=== PATIENT | male | born 1940 | race Caucasian/White ===

== ENCOUNTER 2018-02-22 13:49 | Emergency (ER) | payer MEDICARE, SELFPAY ==
[2018-02-22 14:00] VITALS: BP 170/71; PULSE 72; RESP 18; TEMP 36.7; O2SAT 100
--- NOTE | 2018-02-22 14:29 | ED.ABDPAIN ---
HPI - Abdominal Pain <[facility] - Last Filed: 02/22/18 22:58> General Chief Complaint: Abdominal Pain Stated Complaint: I THINK I HAVE HERNIA Time Seen by Provider: 02/22/18 14:07 Source: patient Mode of arrival: ambulatory Limitations: no limitations History of Present Illness HPI narrative: Patient presents with chief complaint of intermittent right groin pain. He feels a burning sensation upon worse activity. He has not taken anything for the pain. He does have a history of kidney stones, but states that this does not feel like a kidney stone. He denies any dysuria, urgency, fever, nausea, vomiting, diarrhea or abdominal pain. States his pain is isolated to his right groin, worse with activity better with sitting and rest. Review of Systems <[facility] - Last Filed: 02/22/18 22:58> Review of Systems GENERAL: See HPI HEENT: Denies sinus pain, ear pain, sore throat, difficulty swallowing, dizziness. RESPIRATORY: Denies dyspnea, cough, wheezing, hemoptysis, sputum. CARDIOVASCULAR: Denies chest pain, palpitations, orthopnea, edema, GASTROINTESTINAL: Denies nausea, vomiting, abdominal pain, diarrhea, constipation, melena. : Denies dysuria, frequency, incontinence, hematuria, urinary retention. MUSCULOSKELETAL: See HPI SKIN: Denies rash, skin lesions, or other NEUROLOGIC: Denies weakness, headache, numbness, change in speech, confusion, seizures, incoordination. PSYCHIATRIC: No concerning psychosocial issues. 12 point review of systems is negative except for those stated above Exam <[facility] - Last Filed: 02/22/18 22:58> Narrative Exam Narrative: GENERAL: This is a well-nourished, well-developed patient, in no acute distress lying on stretcher. HEAD: Atraumatic. Normocephalic. No temporal or scalp tenderness. EYES: Pupils equal round and reactive. Extraocular motions intact. No scleral icterus. No injection or drainage. ENT: Nose without bleeding, purulent drainage or septal hematoma. Throat without erythema, tonsillar hypertrophy or exudate. Uvula midline. Airway patent. NECK: Trachea midline. No JVD or lymphadenopathy. Supple, nontender, no meningeal signs. CARDIOVASCULAR: Regular rate and rhythm without murmurs, gallops, or rubs. RESPIRATORY: Clear to auscultation. Breath sounds equal bilaterally. No wheezes, rales, or rhonchi. GASTROINTESTINAL: Abdomen soft, non-tender, nondistended. No hepato-splenomegaly, or palpable masses. No guarding. Active bowel sounds all 4 quadrants. exam performed with Orin FARIA as veterinary technology instructor. No palpable hernia bilaterally. Testicles nontender to palpation no palpable masses. EXTREMITIES: No clubbing, cyanosis, or edema. No joint tenderness, effusion, or edema noted. BACK: Nontender without deformity or crepitance. No flank tenderness. NEURO: AOx3. SKIN: No rash or erythema. Initial Vital Signs Initial Vital Signs: Vital Signs Temperature 98.1 F 02/22/18 14:00 Pulse Rate 72 02/22/18 14:00 Respiratory Rate 18 02/22/18 14:00 Blood Pressure 170/71 H 02/22/18 14:00 Pulse Oximetry 100 02/22/18 14:00 <Kailyn Emanuel DO - Last Filed: 02/23/18 10:35> Initial Vital Signs Initial Vital Signs: Vital Signs Temperature 98.1 F 02/22/18 14:00 Pulse Rate 72 02/22/18 14:00 Respiratory Rate 18 02/22/18 14:00 Blood Pressure 170/71 H 02/22/18 14:00 Pulse Oximetry 100 02/22/18 14:00 Course <LINA Sandoval - Last Filed: 02/22/18 22:58> Orders Ordered: ED Orders 02/22/18 14:46 Urinalysis and Microscopic Stat 02/22/18 15:10 Complete Blood Count AUTO DIFF Stat Comprehensive Metabolic Panel Stat 02/22/18 15:31 US abdomen limited Stat Vital Signs - 8 hr 02/22/18 16:59 Pulse Rate 54 L Respiratory Rate 16 Blood Pressure [Right Arm] 133/66 Pulse Oximetry 99 <DO Anayeli Morales Last Filed: 02/23/18 10:35> Orders Ordered: ED Orders 02/22/18 14:46 Urinalysis and Microscopic Stat 02/22/18 15:10 Complete Blood Count AUTO DIFF Stat Comprehensive Metabolic Panel Stat 02/22/18 15:31 US abdomen limited Stat Vital Signs - 8 hr 02/22/18 16:59 Pulse Rate 54 L Respiratory Rate 16 Blood Pressure [Right Arm] 133/66 Pulse Oximetry 99 MDM - Abdominal Pain <Celsa Chadwick, INTERLINE CLERK-BC - Last Filed: 02/22/18 22:58> Lab Data Attestation: I reviewed the patient's lab results. Result diagrams: 02/22/18 15:10 02/22/18 15:10 Lab Results 02/22/18 02/22/18 02/22/18 Range/Units 14:46 15:10 15:10 WBC 7.6 (4.5-11.0) X10^3/uL RBC 4.43 L (4.5-5.9) X10^6/uL Hgb 14.4 (13.5-17.5) g/dL Hct 42.8 (41-53) % MCV 96.8 (80-100) fL MCH 32.5 (26-34) PG MCHC 33.6 (30-36) % RDW 13.6 (11.6-14.8) % Plt Count 190 (150-400) X10^3/uL Neut % (Auto) 72.0 (50-75) % Lymph % (Auto) 21.0 L (25-40) % [place] % (Auto) 5.2 (3-14) % Eos % (Auto) 1.4 L (2-4) % Baso % (Auto) 0.4 (0-2) % Neut # (Auto) 5400 (1003-3337) /uL Sodium 144 (137-145) mmol/L Potassium 4.0 (3.4-5.1) mmol/L Chloride 107 (98-107) mmol/L Carbon Dioxide 28 (22-32) mmol/L BUN 18 (9-20) mg/dL Creatinine 0.80 (0.66-1.25) mg/dL Estimated GFR > 60.0 (>60) mL/min BUN/Creatinine Ratio 22.5 H (6-22) Glucose 96 (80-110) mg/dL Calcium 9.4 (8.4-10.2) mg/dL Total Bilirubin 0.6 (0.2-1.3) mg/dL AST 25 (17-59) IU/L ALT 20 L (21-72) IU/L Alkaline Phosphatase 98 (38-126) U/L Total Protein 6.8 (6.3-8.2) g/dL Albumin 4.3 (3.5-5.0) g/dL Globulin 2.5 (1.7-4.1) g/dL Albumin/Globulin Ratio 1.7 (1.0-2.8) Urine Color Yellow Urine Appearance Clear Urine pH 6.5 (4.5-8.0) Ur Specific [place] 1.020 (1.000-1.035) Urine Protein Negative (Negative) Urine Glucose (UA) Negative (Normal) g/dL Urine Ketones Negative (NEGATIVE) Urine Occult Blood Negative (Negative) Urine Nitrate Negative (Negative) Urine Bilirubin Negative (NEGATIVE) Urine Urobilinogen 0.2 (0.2) E.U./dL Ur Leukocyte Esterase Negative (NEGATIVE) Urine RBC None seen (0-5/HPF) Urine WBC 0-1/hpf (0-5/HPF) Ur Squamous Epith Cells 0-1 /hpf Urine Bacteria None seen (None) Ur Culture Indicated? Cult not indicated Micro UA Comment Not Reportable Imaging Data US - abdomen: Radiologist's impression: [place] [address] Ultrasound Report Signed Patient: EVETTE FERMIN JR MR#: [id number] : 1940 Acct:[id number] Age/Sex: 78 / M Date of Service: 02/22/18 Loc: ED Accession Number: [id number] Procedure: US abdomen limited Ordering Provider: Celsa ChadwickBC PROCEDURE: US ABDOMEN LIMITED INDICATIONS: right groin pain.. ? hernia TECHNIQUE: Real-time focused scanning was performed of the inguinal region, with image documentation. COMPARISON: None. FINDINGS: Targeted sonographic imaging of the right inguinal region was performed. There is no cystic or solid mass. No lymphadenopathy is evident. No inguinal hernia is appreciated. IMPRESSION: No evidence of a right inguinal hernia. Dictated by: Waqar Cronin M.D. on 02/22/2018 at 15:45 Approved by: Waqar Cronin M.D. on 02/22/2018 at 15:45 [facility] Narrative Medical decision making narrative: Patient presented with chief complaint of right groin pain worse with activity. He states it felt burning and only happened with some activity. He denies any pain in the emergency department. I did not find or appreciate a hernia on exam. I did order an ultrasound to evaluate for hernia I cannot palpate. This came back negative. He had a normal CBC and CMP as well as a normal urinalysis. I discussed conservative measures for the time being including over the calf or ibuprofen rest and ice. Discussed follow-up primary care provider worsening or no improvement. Patient had no questions or concerns upon discharge. <Kailyn Emanuel, DO - Last Filed: 02/23/18 10:35> Lab Data Lab Results 02/22/18 02/22/18 02/22/18 Range/Units 14:46 15:10 15:10 WBC 7.6 (4.5-11.0) X10^3/uL RBC 4.43 L (4.5-5.9) X10^6/uL Hgb 14.4 (13.5-17.5) g/dL Hct 42.8 (41-53) % MCV 96.8 (80-100) fL MCH 32.5 (26-34) PG MCHC 33.6 (30-36) % RDW 13.6 (11.6-14.8) % Plt Count 190 (150-400) X10^3/uL Neut % (Auto) 72.0 (50-75) % Lymph % (Auto) 21.0 L (25-40) % [place] % (Auto) 5.2 (3-14) % Eos % (Auto) 1.4 L (2-4) % Baso % (Auto) 0.4 (0-2) % Neut # (Auto) 5400 (3456-5834) /uL Sodium 144 (137-145) mmol/L Potassium 4.0 (3.4-5.1) mmol/L Chloride 107 (98-107) mmol/L Carbon Dioxide 28 (22-32) mmol/L BUN 18 (9-20) mg/dL Creatinine 0.80 (0.66-1.25) mg/dL Estimated GFR > 60.0 (>60) mL/min BUN/Creatinine Ratio 22.5 H (6-22) Glucose 96 (80-110) mg/dL Calcium 9.4 (8.4-10.2) mg/dL Total Bilirubin 0.6 (0.2-1.3) mg/dL AST 25 (17-59) IU/L ALT 20 L (21-72) IU/L Alkaline Phosphatase 98 (38-126) U/L Total Protein 6.8 (6.3-8.2) g/dL Albumin 4.3 (3.5-5.0) g/dL Globulin 2.5 (1.7-4.1) g/dL Albumin/Globulin Ratio 1.7 (1.0-2.8) Urine Color Yellow Urine Appearance Clear Urine pH 6.5 (4.5-8.0) Ur Specific [place] 1.020 (1.000-1.035) Urine Protein Negative (Negative) Urine Glucose (UA) Negative (Normal) g/dL Urine Ketones Negative (NEGATIVE) Urine Occult Blood Negative (Negative) Urine Nitrate Negative (Negative) Urine Bilirubin Negative (NEGATIVE) Urine Urobilinogen 0.2 (0.2) E.U./dL Ur Leukocyte Esterase Negative (NEGATIVE) Urine RBC None seen (0-5/HPF) Urine WBC 0-1/hpf (0-5/HPF) Ur Squamous Epith Cells 0-1 /hpf Urine Bacteria None seen (None) Ur Culture Indicated? Cult not indicated Micro UA Comment Not Reportable Discharge Plan Departure Patient Disposition: Home Clinical Impression: Inguinal pain Discharge Date/Time: 02/22/18 17:35 Interventions: ED Discharge Assessment Last Done: 02/22/18 17:34 Instructions: DI for Groin Strain, How To Perform RICE (Rest, Ice, Compress, Elevate), Ibuprofen Activity Restrictions/Additional Instructions: You came to the emergency department today concerned you might have a hernia. I cannot find any evidence of a hernia on exam and there was nothing visible on ultrasound. I would like you to rest in case you have strained a muscle or iliofemoral ligament. I would like you to rest, use ice, take ibuprofen 3 times a day for inflammation. Please follow-up if worsening or no improvement. Referrals: [facility] [Provider Group] <Kailyn Emanuel DO - Last Filed: 02/23/18 10:35> Cosign ED Attending Ofelia Attestation: I was immediately available in the department for consultation. Documentation has been reviewed. I agree with assessment and plan.
--- NOTE | 2018-02-22 15:25 | ED_ITS ---
HPI - Abdominal Pain [facility] - Last Filed: 02/22/18 22:58> General Chief Complaint: Abdominal Pain Stated Complaint: I THINK I HAVE HERNIA Time Seen by Provider: 02/22/18 14:07 Source: patient Mode of arrival: ambulatory Limitations: no limitations History of Present Illness HPI narrative: Patient presents with chief complaint of intermittent right groin pain. He feels a burning sensation upon worse activity. He has not taken anything for the pain. He does have a history of kidney stones, but states that this does not feel like a kidney stone. He denies any dysuria, urgency, fever, nausea, vomiting, diarrhea or abdominal pain. States his pain is isolated to his right groin, worse with activity better with sitting and rest. Review of Systems <[facility] - Last Filed: 02/22/18 22:58> Review of Systems GENERAL: See HPI HEENT: Denies sinus pain, ear pain, sore throat, difficulty swallowing, dizziness. RESPIRATORY: Denies dyspnea, cough, wheezing, hemoptysis, sputum. CARDIOVASCULAR: Denies chest pain, palpitations, orthopnea, edema, GASTROINTESTINAL: Denies nausea, vomiting, abdominal pain, diarrhea, constipation, melena. : Denies dysuria, frequency, incontinence, hematuria, urinary retention. MUSCULOSKELETAL: See HPI SKIN: Denies rash, skin lesions, or other NEUROLOGIC: Denies weakness, headache, numbness, change in speech, confusion, seizures, incoordination. PSYCHIATRIC: No concerning psychosocial issues. 12 point review of systems is negative except for those stated above Exam <[facility] - Last Filed: 02/22/18 22:58> Narrative Exam Narrative: GENERAL: This is a well-nourished, well-developed patient, in no acute distress lying on stretcher. HEAD: Atraumatic. Normocephalic. No temporal or scalp tenderness. EYES: Pupils equal round and reactive. Extraocular motions intact. No scleral icterus. No injection or drainage. ENT: Nose without bleeding, purulent drainage or septal hematoma. Throat without erythema, tonsillar hypertrophy or exudate. Uvula midline. Airway patent. NECK: Trachea midline. No JVD or lymphadenopathy. Supple, nontender, no meningeal signs. CARDIOVASCULAR: Regular rate and rhythm without murmurs, gallops, or rubs. RESPIRATORY: Clear to auscultation. Breath sounds equal bilaterally. No wheezes , rales, or rhonchi. GASTROINTESTINAL: Abdomen soft, non-tender, nondistended. No hepato-splenomegaly , or palpable masses. No guarding. Active bowel sounds all 4 quadrants. exam performed with Orin FARIA as manager asset management. No palpable hernia bilaterally. Testicles nontender to palpation no palpable masses. EXTREMITIES: No clubbing, cyanosis, or edema. No joint tenderness, effusion, or edema noted. BACK: Nontender without deformity or crepitance. No flank tenderness. NEURO: AOx3. SKIN: No rash or erythema. Initial Vital Signs Initial Vital Signs: Vital Signs Temperature 98.1 F 02/22/18 14:00 Pulse Rate 72 02/22/18 14:00 Respiratory Rate 18 02/22/18 14:00 Blood Pressure 170/71 H 02/22/18 14:00 Pulse Oximetry 100 02/22/18 14:00 <Kailyn Emanuel DO - Last Filed: 02/23/18 10:35> Initial Vital Signs Initial Vital Signs: Vital Signs Temperature 98.1 F 02/22/18 14:00 Pulse Rate 72 02/22/18 14:00 Respiratory Rate 18 02/22/18 14:00 Blood Pressure 170/71 H 02/22/18 14:00 Pulse Oximetry 100 02/22/18 14:00 Course <LINA Sandoval - Last Filed: 02/22/18 22:58> Orders Ordered: ED Orders 02/22/18 14:46 Urinalysis and Microscopic Stat 02/22/18 15:10 Complete Blood Count AUTO DIFF Stat Comprehensive Metabolic Panel Stat 02/22/18 15:31 US abdomen limited Stat Vital Signs - 8 hr 02/22/18 16:59 Pulse Rate 54 L Respiratory Rate 16 Blood Pressure [Right Arm] 133/66 Pulse Oximetry 99 <DO Anayeli Morales Last Filed: 02/23/18 10:35> Orders Ordered: ED Orders 02/22/18 14:46 Urinalysis and Microscopic Stat 02/22/18 15:10 Complete Blood Count AUTO DIFF Stat Comprehensive Metabolic Panel Stat 02/22/18 15:31 US abdomen limited Stat Vital Signs - 8 hr 02/22/18 16:59 Pulse Rate 54 L Respiratory Rate 16 Blood Pressure [Right Arm] 133/66 Pulse Oximetry 99 MDM - Abdominal Pain <Celsa Chadwick, SYNOPTIC METEOROLOGIST-BC - Last Filed: 02/22/18 22:58> Lab Data Attestation: I reviewed the patient's lab results. Result diagrams: 02/22/18 15:10 02/22/18 15:10 Lab Results 02/22/18 02/22/18 02/22/18 Range/Units 14:46 15:10 15:10 WBC 7.6 (4.5-11.0) X10^3/uL RBC 4.43 L (4.5-5.9) X10^6/uL Hgb 14.4 (13.5-17.5) g/dL Hct 42.8 (41-53) % MCV 96.8 (80-100) fL MCH 32.5 (26-34) PG MCHC 33.6 (30-36) % RDW 13.6 (11.6-14.8) % Plt Count 190 (150-400) X10^3/uL Neut % (Auto) 72.0 (50-75) % Lymph % (Auto) 21.0 L (25-40) % [place] % (Auto) 5.2 (3-14) % Eos % (Auto) 1.4 L (2-4) % Baso % (Auto) 0.4 (0-2) % Neut # (Auto) 5400 (1184-1070) /uL Sodium 144 (137-145) mmol/L Potassium 4.0 (3.4-5.1) mmol/L Chloride 107 (98-107) mmol/L Carbon Dioxide 28 (22-32) mmol/L BUN 18 (9-20) mg/dL Creatinine 0.80 (0.66-1.25) mg/dL Estimated GFR > 60.0 (>60) mL/min BUN/Creatinine Ratio 22.5 H (6-22) Glucose 96 (80-110) mg/dL Calcium 9.4 (8.4-10.2) mg/dL Total Bilirubin 0.6 (0.2-1.3) mg/dL AST 25 (17-59) IU/L ALT 20 L (21-72) IU/L Alkaline Phosphatase 98 (38-126) U/L Total Protein 6.8 (6.3-8.2) g/dL Albumin 4.3 (3.5-5.0) g/dL Globulin 2.5 (1.7-4.1) g/dL Albumin/Globulin Ratio 1.7 (1.0-2.8) Urine Color Yellow Urine Appearance Clear Urine pH 6.5 (4.5-8.0) Ur Specific [place] 1.020 (1.000-1.035) Urine Protein Negative (Negative) Urine Glucose (UA) Negative (Normal) g/dL Urine Ketones Negative (NEGATIVE) Urine Occult Blood Negative (Negative) Urine Nitrate Negative (Negative) Urine Bilirubin Negative (NEGATIVE) Urine Urobilinogen 0.2 (0.2) E.U./dL Ur Leukocyte Esterase Negative (NEGATIVE) Urine RBC None seen (0-5/HPF) Urine WBC 0-1/hpf (0-5/HPF) Ur Squamous Epith Cells 0-1 /hpf Urine Bacteria None seen (None) Ur Culture Indicated? Cult not indicated Micro UA Comment Not Reportable Imaging Data US - abdomen: Radiologist's impression: [place] [address] Ultrasound Report Signed Patient: EVETTE FERMIN JR MR#: [id number] : 1940 Acct:[id number] Age/Sex: 78 / M Date of Service: 02/22/18 Loc: ED Accession Number: [id number] Procedure: US abdomen limited Ordering Provider: Celsa ChadwickBC PROCEDURE: US ABDOMEN LIMITED INDICATIONS: right groin pain.. ? hernia TECHNIQUE: Real-time focused scanning was performed of the inguinal region, with image documentation. COMPARISON: None. FINDINGS: Targeted sonographic imaging of the right inguinal region was performed. There is no cystic or solid mass. No lymphadenopathy is evident. No inguinal hernia is appreciated. IMPRESSION: No evidence of a right inguinal hernia. Dictated by: Waqar Cronin M.D. on 02/22/2018 at 15:45 Approved by: Waqar Cronin M.D. on 02/22/2018 at 15:45 [facility] Narrative Medical decision making narrative: Patient presented with chief complaint of right groin pain worse with activity. He states it felt burning and only happened with some activity. He denies any pain in the emergency department. I did not find or appreciate a hernia on exam. I did order an ultrasound to evaluate for hernia I cannot palpate. This came back negative. He had a normal CBC and CMP as well as a normal urinalysis. I discussed conservative measures for the time being including over the calf or ibuprofen rest and ice. Discussed follow-up primary care provider worsening or no improvement. Patient had no questions or concerns upon discharge. <Kailyn Emanuel, DO - Last Filed: 02/23/18 10:35> Lab Data Lab Results 02/22/18 02/22/18 02/22/18 Range/Units 14:46 15:10 15:10 WBC 7.6 (4.5-11.0) X10^3/uL RBC 4.43 L (4.5-5.9) X10^6/uL Hgb 14.4 (13.5-17.5) g/dL Hct 42.8 (41-53) % MCV 96.8 (80-100) fL MCH 32.5 (26-34) PG MCHC 33.6 (30-36) % RDW 13.6 (11.6-14.8) % Plt Count 190 (150-400) X10^3/uL Neut % (Auto) 72.0 (50-75) % Lymph % (Auto) 21.0 L (25-40) % [place] % (Auto) 5.2 (3-14) % Eos % (Auto) 1.4 L (2-4) % Baso % (Auto) 0.4 (0-2) % Neut # (Auto) 5400 (0780-6466) /uL Sodium 144 (137-145) mmol/L Potassium 4.0 (3.4-5.1) mmol/L Chloride 107 (98-107) mmol/L Carbon Dioxide 28 (22-32) mmol/L BUN 18 (9-20) mg/dL Creatinine 0.80 (0.66-1.25) mg/dL Estimated GFR > 60.0 (>60) mL/min BUN/Creatinine Ratio 22.5 H (6-22) Glucose 96 (80-110) mg/dL Calcium 9.4 (8.4-10.2) mg/dL Total Bilirubin 0.6 (0.2-1.3) mg/dL AST 25 (17-59) IU/L ALT 20 L (21-72) IU/L Alkaline Phosphatase 98 (38-126) U/L Total Protein 6.8 (6.3-8.2) g/dL Albumin 4.3 (3.5-5.0) g/dL Globulin 2.5 (1.7-4.1) g/dL Albumin/Globulin Ratio 1.7 (1.0-2.8) Urine Color Yellow Urine Appearance Clear Urine pH 6.5 (4.5-8.0) Ur Specific [place] 1.020 (1.000-1.035) Urine Protein Negative (Negative) Urine Glucose (UA) Negative (Normal) g/dL Urine Ketones Negative (NEGATIVE) Urine Occult Blood Negative (Negative) Urine Nitrate Negative (Negative) Urine Bilirubin Negative (NEGATIVE) Urine Urobilinogen 0.2 (0.2) E.U./dL Ur Leukocyte Esterase Negative (NEGATIVE) Urine RBC None seen (0-5/HPF) Urine WBC 0-1/hpf (0-5/HPF) Ur Squamous Epith Cells 0-1 /hpf Urine Bacteria None seen (None) Ur Culture Indicated? Cult not indicated Micro UA Comment Not Reportable Discharge Plan Departure Patient Disposition: Home Clinical Impression: Inguinal pain Discharge Date/Time: 02/22/18 17:35 Interventions: ED Discharge Assessment Last Done: 02/22/18 17:34 Instructions: DI for Groin Strain, How To Perform RICE (Rest, Ice, Compress, Elevate), Ibuprofen Activity Restrictions/Additional Instructions: You came to the emergency department today concerned you might have a hernia. I cannot find any evidence of a hernia on exam and there was nothing visible on ultrasound. I would like you to rest in case you have strained a muscle or iliofemoral ligament. I would like you to rest, use ice, take ibuprofen 3 times a day for inflammation. Please follow-up if worsening or no improvement. Referrals: [facility] [Provider Group] <Kailyn Emanuel DO - Last Filed: 02/23/18 10:35> Cosign ED Attending Ofelia Attestation: I was immediately available in the department for consultation. Documentation has been reviewed. I agree with assessment and plan.
--- NOTE | 2018-02-22 15:31 | DI.US.S_ITS ---
PROCEDURE: US ABDOMEN LIMITED INDICATIONS: right groin pain.. ? hernia TECHNIQUE: Real-time focused scanning was performed of the inguinal region, with image documentation. COMPARISON: None. FINDINGS: Targeted sonographic imaging of the right inguinal region was performed. There is no cystic or solid mass. No lymphadenopathy is evident. No inguinal hernia is appreciated. IMPRESSION: No evidence of a right inguinal hernia. Dictated by: Waqar Cronin M.D. on 02/22/2018 at 15:45 Approved by: Waqar Cronin M.D. on 02/22/2018 at 15:45
[2018-02-22 15:33] LABS: Add Manual Diff / Slide Review NO; Basophils Percent Auto 0.4 % (0-2); Eosinophils Percent Auto 1.4 % (2-4); Hematocrit 42.8 % (41-53); Hemoglobin 14.4 g/dL (13.5-17.5); Mean Corpuscular HGB Conc 33.6 % (30-36); Mean Corpuscular Hemoglobin 32.5 PG (26-34); Mean Corpuscular Volume 96.8 fL (80-100); Monocytes Percent Auto 5.2 % (3-14); Neutrophils Absolute Auto 5400 /uL (3000-5900); Platelet Count 190 X10^3/uL (150-400); Red Blood Cell Count 4.43 X10^6/uL (4.5-5.9); Red Cell Distribution Width 13.6 % (11.6-14.8); White Blood Cell Count 7.6 X10^3/uL (4.5-11.0)
[2018-02-22 15:36] LABS: Alanine Aminotransferase 20 IU/L (21-72); Albumin 4.3 g/dL (3.5-5.0); Albumin Globulin Ratio 1.7 (1.0-2.8); Alkaline Phosphatase 98 U/L (38-126); Aspartate Aminotransferase 25 IU/L (17-59); BUN Creatinine Ratio 22.5 (6-22); Bilirubin Total 0.6 mg/dL (0.2-1.3); Blood Urea Nitrogen 18 mg/dL (9-20); Calcium 9.4 mg/dL (8.4-10.2); Carbon Dioxide 28 mmol/L (22-32); Chloride 107 mmol/L (98-107); Estimated Glomerular Filt Rate > 60.0 mL/min (>60); Globulin 2.5 g/dL (1.7-4.1); Glucose 96 mg/dL (80-110); HEMOLYSIS 20 (0-50); Sodium 144 mmol/L (137-145); Total Protein 6.8 g/dL (6.3-8.2)
[2018-02-22 15:42] LABS: Bacteria Urine None Seen; RBC Urine None Seen (0-5/HPF)
[2018-02-22 15:45] LABS: Appearance Urine UA CLEAR; Bilirubin Urine UA NEGATIVE (NEGATIVE); Color Urine UA YELLOW; Glucose Urine UA NEGATIVE (Normal); Ketones Urine UA NEGATIVE (NEGATIVE); Leukocyte Esterase Urine UA NEGATIVE (NEGATIVE); Nitrite Urine UA Negative (Negative); Occult Blood Urine UA NEGATIVE (Negative); Protein Urine UA NEGATIVE (Negative); Urobilinogen Urine UA 0.2 E.U./dL (0.2); pH Urine UA 6.5 (4.5-8.0)
[2018-02-22 16:02] LABS: Squamous Epithelial Cell Urine 0-1 /HPF; WBC Urine 0-1/HPF (0-5/HPF)
[2018-02-22 16:03] LABS: Culture Indicated Urine Cult Not Indicated
[2018-02-22 16:59] VITALS: BP 133/66; PULSE 54; RESP 16; O2SAT 99
== END 2018-02-22 17:35 | disposition home or self-care (01) ==
PROVIDERS: Emergency Provider Nurse Practitioner Family
DX: R10.30 Lower abdominal pain, unspecified (principal)
CPT/HCPCS: 36591; 76705; 80053; 81001; 85025; 99282; 99284

== ENCOUNTER 2018-10-06 11:26 | Emergency (ER) | payer MEDICARE, SELFPAY ==
--- NOTE | 2018-10-06 11:29 | ED.FALL ---
HPI - Fall General Chief Complaint: Fall Stated Complaint: Fell 5days ago; states rt hip swelling and pain Time Seen by Provider: 10/06/18 11:27 Source: patient and family Mode of arrival: wheelchair Limitations: no limitations History of Present Illness HPI Narrative: 78-year-old male nonsmoker with history of hypertension and hyperlipidemia presents with his for evaluation of right hip pain. Five days ago the patient was in a bath tub and slipped, landing on his right hip. He denies any other injury. His pain is worse with motion and improves with rest. He denies numbness, tingling or weakness. His injury was suffered in [place] and he and drove across country and presents today because his pain is still present. He is unable to ambulate without difficulty. He denies numbness, tingling or weakness. He denies any difficulty starting a urine stream, controlling her bowel or footdrop. MD complaint: fall Onset (ago): day(s) Fall from: standing Fall witnessed: no Place fall occurred: home Loss of consciousness: none Prolonged down time: no Symptoms prior to fall: none Context: tripped/slipped Severity: moderate Quality: burning, sharp and dull Associated symptoms (after fall): denies Related Data Home Medications Medication Instructions Recorded Confirmed allopurinol 300 mg PO DAILY 10/06/18 10/06/18 aspirin 81 mg PO DAILY 10/06/18 10/06/18 losartan 100 mg PO DAILY 10/06/18 10/06/18 pravastatin 40 mg PO DAILY 10/06/18 10/06/18 tamsulosin 0.4 mg PO DAILY 10/06/18 10/06/18 Previous Rx's Medication Instructions Recorded ketorolac 10 mg PO Q6H PRN #14 tab 10/06/18 tramadol [Ultram] 50 mg PO TID PRN #10 tab 10/06/18 Allergies Allergy/AdvReac Type Severity Reaction Status Date / Time No Known Drug Allergies Allergy Verified 10/06/18 11:34 Review of Systems Constitutional Denies chills, Denies fever(s), Denies lethargy and Denies weakness Eyes Denies change in vision, Denies eye discharge, Denies irritation and Denies loss of vision ENT Ears, Nose, Mouth, and Throat: Denies change in voice, Denies neck pain and Denies sore throat Cardiovascular Denies chest pain, Denies irregular heart rhythm, Denies lightheadedness, Denies palpitations, Denies dyspnea, Denies dyspnea on exertion and Denies orthopnea Respiratory Denies cough, Denies dyspnea, Denies dyspnea on exertion and Denies wheezing Gastrointestinal Gastrointestinal: Denies abdominal pain, Denies change in bowel habits, Denies diarrhea, Denies nausea and Denies vomiting Genitourinary Denies hematuria, Denies flank pain, Denies urinary incontinence and Denies urinary urgency Musculoskeletal Reports joint swelling, Reports limited range of motion and Denies neck pain Integumentary/Breasts Denies pruritus, Denies erythema, Denies rash and Denies wounds Neurologic Denies confusion, Denies loss of vision and Denies weakness Psychiatric Denies anxiety, Denies confusion, Denies depression, Denies homicidal ideation and Denies suicidal ideation Endocrine Denies palpitations Hematologic/Lymphatic Denies easy bruising Allergic/Immunologic Denies wheezing Exam Narrative Exam Narrative: GEN: AOx3 and in mild distress, GCS 15 EYES: Pupils are equal, round, and reactive to light and accommodation. Extraoccular muscles are intact bilaterally. There is no subconjunctival hemorrhage or exudate. CHEST: Lungs are clear to auscultation bilaterally and free of wheezes, rales, or rhonchi. Heart rate is regular rhythm, there are no murmurs, clicks, rubs, or gallops. There is no chest wall tenderness. ABD: Abdomen is soft and nontender. There is no guarding or rebound. Bowel sounds are normal in all 4 quadrants. There is no mass or organomegaly. EXT: Severe pain on palpation of right lateral hip. No obvious external deformity such as shortening or external rotation. This injury is closed, isolated and neurovascularly intact. patient does have the ability to both passively and actively flex at the hip as well as internal and external rotation SKIN: Warm, pink, and dry. No erythema or rash Initial Vital Signs Initial Vital Signs: Vital Signs Temperature 97.5 F L 10/06/18 11:30 Pulse Rate 88 10/06/18 11:30 Respiratory Rate 18 10/06/18 11:30 Blood Pressure 166/84 H 10/06/18 11:30 Pulse Oximetry 98 10/06/18 11:30 [facility] Social History Smoking Status: Former smoker Social History (Reviewed 10/06/18 @ 17:11 by MARI Washburn Smoking Status: Former smoker Course Orders Ordered: ED Orders 10/06/18 11:45 XR hip w pel if done RT 2V Stat 10/06/18 12:19 CT pelvis wo con Stat Reevaluation(s) Reevaluation #1: given mechanism of injury, severity of pain, and difficulty with ambulation CT was ordered after negative Xray Vital Signs - 8 hr 10/06/18 11:30 10/06/18 14:07 Temperature 97.5 F L 94.5 F L Pulse Rate 88 63 Respiratory Rate 18 17 Blood Pressure 166/84 H 183/82 H Pulse Oximetry 98 99 MDM - Fall Imaging Data CT scan - pelvis: Radiologist's impression: [address] [address] [address] Scan Report Signed Patient: Sanju Mirza JrMR#: [id number] : 2Acct:[id number] Age/Sex: 78 / MDate of Service: 10/06/18 Loc: ED Accession Number: [id number] Procedure: CT pelvis wo con Ordering Provider: Luis Barr D.O. PROCEDURE: CT PEL WO CON INDICATIONS: severe R hip pain, s/p trauma, neg Xray TECHNIQUE: Noncontrast 3 mm axial sections acquired through the bony pelvis, with coronal and sagittal reformatting. [facility] IF [facility] RT 2[facility], 10/06/2018, 11:46. FINDINGS: Image quality: Excellent. Bones: No visualized fractures or dislocations. Pelvic bones as well as hips are unremarkable. No osseous lesions. Soft tissues: There is portions of the pelvis demonstrate significant colonic diverticula without associated inflammatory change. There is no free fluid. The prostate gland is enlarged. Mild fluid is noted within the left scrotum most suggestive of hydrocele. This appears prominent. IMPRESSION: 1. No visualized fracture. 2. Prominent colonic diverticulosis. 3. Left testicular hydrocele. As noted the left testicle appears prominent. However, it is incompletely visualized. If this area is of concern, ultrasound may be obtained. Dictated by: Bonny Davenport M.D. on 10/06/2018 at 13:27 Approved by: Bonny Davenport M.D. on 10/06/2018 at 13:30 Pelvis Xray: Radiologist's impression: [address] [address] XRay Report Signed Patient: Sanju Mirza JrMR#: [id number] : 2Acct:[id number] Age/Sex: 78 / MDate of Service: 10/06/18 Loc: ED Accession Number: [id number] Procedure: XR hip w pel if done RT 2V Ordering Provider: Luis Barr D.O. PROCEDURE: XR HIP W PEL IF DONE RT 2V INDICATIONS: fall, injury pain TECHNIQUE: AP pelvis with lateral view(s) of the bilateral hip(s). COMPARISON: None. FINDINGS: Bones: No fractures or dislocations. Pelvic ring appears intact. No suspicious bony lesions. 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 Soft tissues: The visualized bowel gas pattern is normal. No suspicious soft tissue calcifications. IMPRESSION: No visualized acute fracture or dislocation. However, if clinical concern and/or pain persist, short interval imaging followup in 7-10 days is recommended, as occult injury cannot be definitively excluded. Dictated by: Bonny Davenport M.D. on 10/06/2018 at 11:56 Approved by: Bonny Davenport M.D. on 10/06/2018 at 11:56 [facility] Narrative Medical decision making narrative: Multiple etiologies for patient's symptoms considered including: [Hip contusion versus occult fracture versus other] Patient's symptoms improved or duration of stay with above-stated therapies. Findings and discharge diagnosis discussed with patient/family followed by verbalization of understanding Return precautions discussed with patient/family whom verbalize understanding. Discharge Plan Departure Patient Disposition: Home Clinical Impression: Acute hip pain Qualifiers: Laterality: right Qualified Code(s): M25.551 - Pain in right hip Contusion Qualifiers: Encounter type: initial encounter Contusion area: hip Laterality: right Qualified Code(s): S70.01XA - Contusion of right hip, initial encounter Discharge Date/Time: 10/06/18 14:08 Interventions: ED Discharge Assessment Last Done: 10/06/18 14:07 Instructions: DI for Hip Pain Activity Restrictions/Additional Instructions: You have been prescribed narcotic medications. While on these medications you cannot drive or operate heavy machinery. Additionally you cannot sign legal documents or perform any duties such as this. Many people get constipated on narcotic medications so it would be advisable to discuss stool softeners with the pharmacist when you pick up man your prescription. Please understand that we cannot provide further refills of narcotics or controlled substances through the ED and your pain management will need to be through your Primary Care Provider Prescriptions: New ketorolac 10 mg tablet 10 mg PO Q6H PRN (Reason: pain) Qty: 14 RF: 0 tramadol [Ultram] 50 mg tablet 50 mg PO TID PRN (Reason: pain) Qty: 10 RF: 0 No Action pravastatin 40 mg tablet 40 mg PO DAILY RF: 0 aspirin 81 mg Tablet,Chewable 81 mg PO DAILY RF: 0 allopurinol 300 mg tablet 300 mg PO DAILY RF: 0 losartan 100 mg tablet 100 mg PO DAILY RF: 0 tamsulosin 0.4 mg Capsule 0.4 mg PO DAILY RF: 0 Referrals: Gokul Watts MD [Physician] -
[2018-10-06 11:30] VITALS: BP 166/84; PULSE 88; RESP 18; TEMP 36.4; O2SAT 98
--- NOTE | 2018-10-06 11:45 | DI.RAD.S_ITS ---
PROCEDURE: XR HIP W PEL IF DONE RT 2V INDICATIONS: fall, injury pain TECHNIQUE: AP pelvis with lateral view(s) of the bilateral hip(s). COMPARISON: None. FINDINGS: Bones: No fractures or dislocations. Pelvic ring appears intact. No suspicious bony lesions. 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 Soft tissues: The visualized bowel gas pattern is normal. No suspicious soft tissue calcifications. IMPRESSION: No visualized acute fracture or dislocation. However, if clinical concern and/or pain persist, short interval imaging followup in 7-10 days is recommended, as occult injury cannot be definitively excluded. Dictated by: Bonny Davenport M.D. on 10/06/2018 at 11:56 Approved by: Bonny Davenport M.D. on 10/06/2018 at 11:56
--- NOTE | 2018-10-06 12:19 | DI.CT.S_ITS ---
PROCEDURE: CT PEL WO CON INDICATIONS: severe R hip pain, s/p trauma, neg Xray TECHNIQUE: Noncontrast 3 mm axial sections acquired through the bony pelvis, with coronal and sagittal reformatting. COMPARISON: [facility], [facility], XR HIP W PEL IF DONE RT 2V, 10/06/2018, 11:46. FINDINGS: Image quality: Excellent. Bones: No visualized fractures or dislocations. Pelvic bones as well as hips are unremarkable. No osseous lesions. Soft tissues: There is portions of the pelvis demonstrate significant colonic diverticula without associated inflammatory change. There is no free fluid. The prostate gland is enlarged. Mild fluid is noted within the left scrotum most suggestive of hydrocele. This appears prominent. IMPRESSION: 1. No visualized fracture. 2. Prominent colonic diverticulosis. 3. Left testicular hydrocele. As noted the left testicle appears prominent. However, it is incompletely visualized. If this area is of concern, ultrasound may be obtained. Dictated by: Bonny Davenport M.D. on 10/06/2018 at 13:27 Approved by: Bonny Davenport M.D. on 10/06/2018 at 13:30
--- NOTE | 2018-10-06 13:41 | ED_ITS ---
HPI - Fall General Chief Complaint: Fall Stated Complaint: Fell 5days ago; states rt hip swelling and pain Time Seen by Provider: 10/06/18 11:27 Source: patient and family Mode of arrival: wheelchair Limitations: no limitations History of Present Illness HPI Narrative: 78-year-old male nonsmoker with history of hypertension and hyperlipidemia presents with his for evaluation of right hip pain. Five days ago the patient was in a bath tub and slipped, landing on his right hip. He denies any other injury. His pain is worse with motion and improves with rest. He denies numbness, tingling or weakness. His injury was suffered in [place] and he and drove across country and presents today because his pain is still present. He is unable to ambulate without difficulty. He denies numbness, tingling or weakness. He denies any difficulty starting a urine stream, controlling her bowel or footdrop. MD complaint: fall Onset (ago): day(s) Fall from: standing Fall witnessed: no Place fall occurred: home Loss of consciousness: none Prolonged down time: no Symptoms prior to fall: none Context: tripped/slipped Severity: moderate Quality: burning, sharp and dull Associated symptoms (after fall): denies Related Data Home Medications Medication Instructions Recorded Confirmed allopurinol 300 mg PO DAILY 10/06/18 10/06/18 aspirin 81 mg PO DAILY 10/06/18 10/06/18 losartan 100 mg PO DAILY 10/06/18 10/06/18 pravastatin 40 mg PO DAILY 10/06/18 10/06/18 tamsulosin 0.4 mg PO DAILY 10/06/18 10/06/18 Previous Rx's Medication Instructions Recorded ketorolac 10 mg PO Q6H PRN #14 tab 10/06/18 tramadol [Ultram] 50 mg PO TID PRN #10 tab 10/06/18 Allergies Allergy/AdvReac Type Severity Reaction Status Date / Time No Known Drug Allergies Allergy Verified 10/06/18 11:34 Review of Systems Constitutional Denies chills, Denies fever(s), Denies lethargy and Denies weakness Eyes Denies change in vision, Denies eye discharge, Denies irritation and Denies loss of vision ENT Ears, Nose, Mouth, and Throat: Denies change in voice, Denies neck pain and Denies sore throat Cardiovascular Denies chest pain, Denies irregular heart rhythm, Denies lightheadedness, Denies palpitations, Denies dyspnea, Denies dyspnea on exertion and Denies orthopnea Respiratory Denies cough, Denies dyspnea, Denies dyspnea on exertion and Denies wheezing Gastrointestinal Gastrointestinal: Denies abdominal pain, Denies change in bowel habits, Denies diarrhea, Denies nausea and Denies vomiting Genitourinary Denies hematuria, Denies flank pain, Denies urinary incontinence and Denies urinary urgency Musculoskeletal Reports joint swelling, Reports limited range of motion and Denies neck pain Integumentary/Breasts Denies pruritus, Denies erythema, Denies rash and Denies wounds Neurologic Denies confusion, Denies loss of vision and Denies weakness Psychiatric Denies anxiety, Denies confusion, Denies depression, Denies homicidal ideation and Denies suicidal ideation Endocrine Denies palpitations Hematologic/Lymphatic Denies easy bruising Allergic/Immunologic Denies wheezing Exam Narrative Exam Narrative: GEN: AOx3 and in mild distress, GCS 15 EYES: Pupils are equal, round, and reactive to light and accommodation. Extraoccular muscles are intact bilaterally. There is no subconjunctival hemorr nola or exudate. CHEST: Lungs are clear to auscultation bilaterally and free of wheezes, rales, or rhonchi. Heart rate is regular rhythm, there are no murmurs, clicks, rubs, or gallops. There is no chest wall tenderness. ABD: Abdomen is soft and nontender. There is no guarding or rebound. Bowel sounds are normal in all 4 quadrants. There is no mass or organomegaly. EXT: Severe pain on palpation of right lateral hip. No obvious external deformity such as shortening or external rotation. This injury is closed, isolated and neurovascularly intact. patient does have the ability to both pa ssively and actively flex at the hip as well as internal and external rotation SKIN: Warm, pink, and dry. No erythema or rash Initial Vital Signs Initial Vital Signs: Vital Signs Temperature 97.5 F L 10/06/18 11:30 Pulse Rate 88 10/06/18 11:30 Respiratory Rate 18 10/06/18 11:30 Blood Pressure 166/84 H 10/06/18 11:30 Pulse Oximetry 98 10/06/18 11:30 [facility] Social History Smoking Status: Former smoker Social History (Reviewed 04/13/19 @ 17:11 by MARI Washburn Smoking Status: Former smoker Course Orders Ordered: ED Orders 10/06/18 11:45 XR hip w pel if done RT 2V Stat 10/06/18 12:19 CT pelvis wo con Stat Reevaluation(s) Reevaluation #1: given mechanism of injury, severity of pain, and difficulty with ambulation CT was ordered after negative Xray Vital Signs - 8 hr 10/06/18 11:30 10/06/18 14:07 Temperature 97.5 F L 94.5 F L Pulse Rate 88 63 Respiratory Rate 18 17 Blood Pressure 166/84 H 183/82 H Pulse Oximetry 98 99 MDM - Fall Imaging Data CT scan - pelvis: Radiologist's impression: [address] [address] [address] Scan Report Signed Patient: Sanju Mirza JrMR#: [id number] : 2Acct:[id number] Age/Sex: 78 / MDate of Service: 10/06/18 Loc: ED Accession Number: [id number] Procedure: CT pelvis wo con Ordering Provider: Luis Barr D.O. PROCEDURE: CT PEL WO CON INDICATIONS: severe R hip pain, s/p trauma, neg Xray TECHNIQUE: Noncontrast 3 mm axial sections acquired through the bony pelvis, with coronal and sagittal reformatting. COMPARISON: [facility], XR HIP W PEL IF DONE RT 2V, 10/06/2018, 11:46. FINDINGS: Image quality: Excellent. Bones: No visualized fractures or dislocations. Pelvic bones as well as hips are unremarkable. No osseous lesions. Soft tissues: There is portions of the pelvis demonstrate significant colonic diverticula without associated inflammatory change. There is no free fluid. The prostate gland is enlarged. Mild fluid is noted within the left scrotum most suggestive of hydrocele. This appears prominent. IMPRESSION: 1. No visualized fracture. 2. Prominent colonic diverticulosis. 3. Left testicular hydrocele. As noted the left testicle appears prominent. However, it is incompletely visualized. If this area is of concern, ultrasound may be obtained. Dictated by: Bonny Davenport M.D. on 10/06/2018 at 13:27 Approved by: Bonny Davenport M.D. on 10/06/2018 at 13:30 Pelvis Xray: Radiologist's impression: [address] [address] XRay Report Signed Patient: Sanju Mirza JrMR#: [id number] : 2Acct:[id number] Age/Sex: 78 / MDate of Service: 10/06/18 Loc: ED Accession Number: [id number] Procedure: XR hip w pel if done RT 2V Ordering Provider: Luis Barr D.O. PROCEDURE: XR HIP W PEL IF DONE RT 2V INDICATIONS: fall, injury pain TECHNIQUE: AP pelvis with lateral view(s) of the bilateral hip(s). COMPARISON: None. FINDINGS: Bones: No fractures or dislocations. Pelvic ring appears intact. No suspicious bony lesions. 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 Soft tissues: The visualized bowel gas pattern is normal. No suspicious soft tissue calcifications. IMPRESSION: No visualized acute fracture or dislocation. However, if clinical concern and/or pain persist, short interval imaging followup in 7-10 days is recommended, as occult injury cannot be definitively excluded. Dictated by: Bonny Davenport M.D. on 10/06/2018 at 11:56 Approved by: Bonny Davenport M.D. on 10/06/2018 at 11:56 [facility] Narrative Medical decision making narrative: Multiple etiologies for patient's symptoms considered including: [Hip contusion versus occult fracture versus other] Patient's symptoms improved or duration of stay with above-stated therapies. Findings and discharge diagnosis discussed with patient/family followed by verbalization of understanding Return precautions discussed with patient/family whom verbalize understanding. Discharge Plan Departure Patient Disposition: Home Clinical Impression: Acute hip pain Qualifiers: Laterality: right Qualified Code(s): M25.551 - Pain in right hip Contusion Qualifiers: Encounter type: initial encounter Contusion area: hip Laterality: right Qualified Code(s): S70.01XA - Contusion of right hip, initial encounter Discharge Date/Time: 10/06/18 14:08 Interventions: ED Discharge Assessment Last Done: 10/06/18 14:07 Instructions: DI for Hip Pain Activity Restrictions/Additional Instructions: You have been prescribed narcotic medications. While on these medications you cannot drive or operate heavy machinery. Additionally you cannot sign legal documents or perform any duties such as this. Many people get constipated on narcotic medications so it would be advisable to discuss stool softeners with the pharmacist when you merchandise pickup/receiving associate your prescription. Please understand that we cannot provide further refills of narcotics or controlled substances through the ED and your pain management will need to be through your Primary Care Provider Prescriptions: New ketorolac 10 mg tablet 10 mg PO Q6H PRN (Reason: pain) Qty: 14 RF: 0 tramadol [Ultram] 50 mg tablet 50 mg PO TID PRN (Reason: pain) Qty: 10 RF: 0 No Action pravastatin 40 mg tablet 40 mg PO DAILY RF: 0 aspirin 81 mg Tablet,Chewable 81 mg PO DAILY RF: 0 allopurinol 300 mg tablet 300 mg PO DAILY RF: 0 losartan 100 mg tablet 100 mg PO DAILY RF: 0 tamsulosin 0.4 mg Capsule 0.4 mg PO DAILY RF: 0 Referrals: Gokul Watts MD [Physician] -
[2018-10-06 14:07] VITALS: BP 183/82; PULSE 63; RESP 17; TEMP 34.7; O2SAT 99
== END 2018-10-06 14:08 | disposition home or self-care (01) ==
PROVIDERS: Emergency Provider Emergency Medicine
DX: M25.551 Pain in right hip (principal); S70.01XA Contusion of right hip, initial encounter; W19.XXXA Unspecified fall, initial encounter
CPT/HCPCS: 72192; 73502; 99282; 99284